=== PATIENT | male | born 1950 | race Caucasian/White ===

== ENCOUNTER 2023-01-08 05:26 | Observation (INO) | payer MEDICARE ==
[2023-01-06 10:53] LABS: BASOPHILS # (AUTO) 0.1 (0.0-0.1); BASOPHILS % 0.5 % (0.0-1.0); EOSINOPHILS # (AUTO) 0.2 (0.0-0.4); EOSINOPHILS % 1.6 % (0.0-6.0); HEMATOCRIT 44.4 % (38.2-49.6); HEMOGLOBIN 15.4 g/dL (14.0-18.0); LYMPHOCYTES # (AUTO) 2.7 (1.0-3.2); LYMPHOCYTES % 25.6 % (18.0-39.1); MEAN CORPUSCULAR HEMOGLOBIN 31.2 pg (28-32); MEAN CORPUSCULAR HGB CONC 34.7 g/dL (31-35); MEAN CORPUSCULAR VOLUME 90.1 fL (81-99); MONOCYTES # (AUTO) 0.9 (0.2-0.8); MONOCYTES % 8.1 % (4.4-11.3); NEUTROPHILS # (AUTO) 6.7 (2.1-6.9); NEUTROPHILS % 63.7 % (38.7-80.0); PLATELET COUNT 269 x10e3/uL (140-360); RED BLOOD COUNT 4.93 x10e6/uL (4.3-5.7); RED CELL DISTRIBUTION WIDTH 13.4 % (11.7-14.4); WHITE BLOOD COUNT 10.54 x10e3/uL (4.8-10.8)
[2023-01-06 11:20] LABS: ANION GAP 14.4 mmol/L (8-16); CALCIUM 9.6 mg/dL (8.4-10.2); CREATININE, SERUM 0.78 mg/dL (0.72-1.25); POTASSIUM 3.4 mmol/L (3.5-5.1)
[2023-01-06 11:36] LABS: INR 1.05; PARTIAL THROMBOPLASTIN TIME 33.7 seconds (23.8-35.5); PROTHROMBIN TIME 13.9 seconds (11.9-14.5)
[~2023-01-08] VITALS: Ht 172.7 cm; Wt 99.8 kg
[~2023-01-08 05:26] MED LIST: ASPIRIN81 MG PO; ATIVAN0.5 MG PO; BEETS PO; CLARITIN10 M4 PO; COQ1050 MG PO; CRESTOR5 MG PO; FLONASE ALLERG9.9 ML INH; HYGROTON25 MG PO; IBUPROFEN400 MG PO; METOPROLOL TAR100 MG PO; NIFEDIPINE ER30 M1 PO; POTASSIUM CHLO10 ME1 PO; PREDNISONE5 MG PO; ZESTRIL10 MG PO
[2023-01-08] MEDS ORDERED: LACTATED RINGER'S 1,000 ML ONE (06:10)
[2023-01-08] MEDS ORDERED: Vancomycin IV 1 GM VIAL ONE ×2 (06:10→06:50)
[2023-01-08] MEDS ORDERED: SODIUM CHLORIDE 0.9% 250ML 250 ML ONE (06:11)
[2023-01-08] MEDS ORDERED: LIDOCAINE 1% W/EPINEPHRINE 20 ML VIAL ONE (06:50)
[2023-01-08] MEDS ORDERED: THROMBIN FOR SOLN 5,000 UNIT VIAL ONE (06:50)
[2023-01-08] MEDS ORDERED: HYDROCODON-ACE1 EA12 PO (09:44)
[2023-01-08] MEDS ORDERED: HYDROMORPHONE 2MG/ML IV PRN (09:45)
[2023-01-08] MEDS ORDERED: FLUTICASONE PROPIONATE NASAL SPRAY NS PRN (09:45)
[2023-01-08] MEDS ORDERED: PREDNISONE 5 MG TAB PO PRN (09:45)
[2023-01-08] MEDS ORDERED: ONDANSETRON HCL INJ 2MG/ML 2ML 2 MG/ML VIAL IV PRN (09:45)
[2023-01-08] MEDS ORDERED: ZOLPIDEM TARTRATE 5 MG TAB PO PRN (09:45)
[2023-01-08] MEDS ORDERED: ACETAMINOPHEN 325 MG TAB PO PRN (09:45)
[2023-01-08] MEDS ORDERED: PROMETHAZINE HCL (IM) 25 MG/ML VIAL IM PRN (09:45)
[2023-01-08] MEDS ORDERED: IBUPROFEN 200 MG TAB PO SCH (09:45)
[2023-01-08 10:53] VITALS: BP 129/78; PULSE 79; RESP 20; TEMP 97.2; O2SAT 98
[2023-01-08 11:00] VITALS: BP 129/78; PULSE 79; RESP 20; TEMP 97.2; O2SAT 98
[2023-01-08] MEDS: LACTATED RINGER'S 1,000 ML IV SCH ×2 (11:00→19:20)
[2023-01-08] MEDS ORDERED: ROCURONIUM BROMIDE 10 MG/ML 5ML VIAL IV ONE (12:02)
[2023-01-08] MEDS ORDERED: ONDANSETRON HCL INJ 2MG/ML 2ML 2 MG/ML VIAL ONE (12:02)
[2023-01-08] MEDS ORDERED: DEXMEDETOMIDINE HCL 200 MCG/2 ML VIAL ONE (12:02)
[2023-01-08] MEDS ORDERED: SEVOFLURANE INHAL SOLN 250 ML PEN BTL ONE (12:02)
[2023-01-08] MEDS ORDERED: LIDOCAINE HCL 2% LOCAL INJ 5 ML SDV VIAL INJ ONE (12:02)
[2023-01-08] MEDS ORDERED: ACETAMINOPHEN 1000 MG/100 ML IV ONE (12:02)
[2023-01-08] MEDS ORDERED: KETAMINE 50MG/5ML SYR ONE (12:02)
[2023-01-08] MEDS ORDERED: SUGAMMADEX SODIUM 200 MG/2 ML VIAL IV ONE (12:02)
[2023-01-08] MEDS ORDERED: PHENYLEPHRINE HCL 1% 10 MG/ML VIAL ONE (12:02)
[2023-01-08] MEDS ORDERED: HYDROCORTISONE SOD SUCCINATE 100 MG VIAL ONE (12:02)
[2023-01-08] MEDS ORDERED: DEXAMETHASONE SOD PHOS INJ 4 MG/ML SDV ONE (12:02)
[2023-01-08] MEDS ORDERED: PROPOFOL IV EMULSION 10 MG/ML 20 ML VIAL ONE (12:02)
[2023-01-08] MEDS ORDERED: FENTANYL CITRATE/PF 100MCG/2 ML INJ ONE (12:15)
[2023-01-08] MEDS ORDERED: MIDAZOLAM HCL 2 MG/2 ML VIAL ONE (12:15)
[2023-01-08 12:16] VITALS: BP 129/78; PULSE 79; RESP 20; TEMP 97.2; O2SAT 98
[2023-01-08] MEDS: LORAZEPAM 0.5 MG TAB PO SCH ×2 (15:22→20:53)
[2023-01-08 15:28] VITALS: BP 100/56; PULSE 82; RESP 20; TEMP 98.8; O2SAT 96
[2023-01-08] MEDS: OXYCODONE/ACETAMINOPHEN 5-325 1 EACH TABLET PO PRN (16:36)
[2023-01-08] MEDS: CARISOPRODOL 350 MG TAB PO PRN (16:37)
[2023-01-08] MEDS: MAGNESIUM/ALUMINUM/SIMETHICONE 30 ML UDC PO PRN (16:37)
[2023-01-08] MEDS: METOPROLOL TARTRATE 50 MG TAB PO SCH (16:38)
[2023-01-08] MEDS: Vancomycin IV 1 GM in SODIUM CHLORIDE 0.9% 250ML 250 ML IV SCH (17:11)
[2023-01-08 20:00] VITALS: BP 115/61; PULSE 62; RESP 18; TEMP 97.8; O2SAT 97
[2023-01-08] MEDS ORDERED: CRESTOR 10MG PO SCH (21:00)
[2023-01-08] MEDS ORDERED: SIMVASTATIN 20 MG TAB PO SCH (21:00)
[2023-01-09] VITALS: BP 132/66; PULSE 86; RESP 18; TEMP 97.9; O2SAT 90
[2023-01-09] MEDS: OXYCODONE/ACETAMINOPHEN 5-325 1 EACH TABLET PO PRN (00:08)
[2023-01-09] MEDS: CARISOPRODOL 350 MG TAB PO PRN (00:09)
[2023-01-09] MEDS: MAGNESIUM/ALUMINUM/SIMETHICONE 30 ML UDC PO PRN (00:11)
[2023-01-09] MEDS: LACTATED RINGER'S 1,000 ML IV SCH (03:40)
[2023-01-09 04:00] VITALS: BP 125/58; PULSE 93; RESP 18; TEMP 98.4; O2SAT 90
[2023-01-09] MEDS: Vancomycin IV 1 GM in SODIUM CHLORIDE 0.9% 250ML 250 ML IV SCH (04:57)
[2023-01-09 08:08] VITALS: BP 131/63; PULSE 48; RESP 20; TEMP 97.3; O2SAT 98
[2023-01-09] MEDS ORDERED: LISINOPRIL 20 MG TAB PO SCH (09:00)
[2023-01-09] MEDS ORDERED: POTASSIUM CHLORIDE 10MEQ EA PO SCH (09:00)
[2023-01-09] MEDS ORDERED: NIFEDIPINE CR 30 MG TAB PO SCH (09:00)
[2023-01-09] MEDS ORDERED: NON-FORMULARY MEDICATION (Ubidecarenone (Coq10) 100 MG) PO SCH (09:00)
[2023-01-09] MEDS ORDERED: CHLORTHALIDONE 25 MG TAB PO SCH (09:00)
[2023-01-09] MEDS: METOPROLOL TARTRATE 50 MG TAB PO SCH (09:00)
[2023-01-09 09:03] VITALS: BP 131/63; PULSE 48; RESP 20; TEMP 97.3; O2SAT 98
[2023-01-09] MEDS: LORAZEPAM 0.5 MG TAB PO SCH (09:23)
[2023-01-09 09:24] VITALS: BP 134/66
[2023-01-09] MEDS ORDERED: ONDANSETRON HCL 4 MG ORAL DISINTEGRATING TAB PO PRN (10:45)
== END 2023-01-09 10:09 | disposition home or self-care (01) ==
LOC: OR 05:26 → PACU V 09:39 → MED/SURG 10:28
PROVIDERS: ADMIT Neurological Surgery; ATTEND Neurological Surgery
DX: M48.062 Spinal stenosis, lumbar region with neurogenic claudication (principal); M71.38 Other bursal cyst, other site; I10 Essential (primary) hypertension; E78.5 Hyperlipidemia, unspecified; Z71.82 Exercise counseling; Z71.3 Dietary counseling and surveillance; Z88.0 Allergy status to penicillin; Z01.810 Encounter for preprocedural cardiovascular examination; Z01.812 Encounter for preprocedural laboratory examination; Z01.818 Encounter for other preprocedural examination; Z79.1 Long term (current) use of non-steroidal anti-inflammatories (NSAID); Z79.82 Long term (current) use of aspirin; Z79.899 Other long term (current) drug therapy; Z68.33 Body mass index [BMI] 33.0-33.9, adult; Z87.891 Personal history of nicotine dependence
CPT/HCPCS: 36415; 63267; 69990; 71046; 72020; 80048; 85025; 85610; 85730; 86850; 86900; 88304; 88311; 93005; G0378 ×2; J0131; J1100; J1720; J2001; J2250; J2371; J2405; J2704; J3010; J3370 ×2; J7050 ×2; J7121